=== PATIENT | female | born 1970 | race Caucasian/White ===

== ENCOUNTER 2017-01-20 11:39 | Observation (INO) | payer BC ==
[2017-01-20] MEDS ORDERED: SODIUM CHLORIDE 0.9% (FLUSH) 10 ML SYG IV PRN ×2 (11:41→19:45)
[2017-01-20] MEDS ORDERED: ASPIRIN TABLET 325 MG TAB PO ONE (11:41)
--- NOTE | 2017-01-20 11:54 | RAD ---
EXAM DESCRIPTION: Chest,1 View CLINICAL HISTORY: chest pain COMPARISON: 22 August 2009 TECHNIQUE: AP portable chest FINDINGS: The lungs are clear. There is no infiltrate or effusion. The heart is normal size. IMPRESSION: Normal portable chest Electronically signed by: Hossein Martinez MD 01/20/2017 11:53 AM TELEVISION SERVICE ENGINEER
[2017-01-20] MEDS ORDERED: NITROGLYCERIN 0.4 MG 25 EA TAB SL ONE ×2 (12:03→12:08)
[2017-01-20] MEDS ORDERED: MORPHINE SULFATE INJ 10 MG/ML VIAL IV ONE ×2 (12:28→14:33)
[2017-01-20] MEDS ORDERED: ONDANSETRON INJ 4 MG/2 ML VIAL IV ONE (12:29)
[2017-01-20] MEDS ORDERED: KETOROLAC TROMETHAMINE INJ 30 MG/ML VIAL IV ONE (12:29)
--- NOTE | 2017-01-20 13:57 | ED.PDOC ---
History of Present Illness - General Chief Complaint: Chest Pain/[place] Stated Complaint: chest pain Time Seen by Provider: 01/20/17 12:48 Source: patient Exam Limitations: no limitations - History of Present Illness Initial Comments: PT REPORTS FEW HOUR HISTORY OF CHEST PAIN AND EPIGASTRIC ABDOMINAL PAIN THAT BEGAN WHILE AT WORK. PT STATES THAT CHEST PAIN RADIATES TO HER JAW AND EARS AND THE ABDOMINAL PAIN RADIATES TO THE RIGHT FLANK. PT STATES THAT SHE THINKS SHE IS HAVING A GALLBLADDER ATTACK. PT DENIES FEVER, CHILLS, N/V/D. Timing/Duration: 1-3 hours Severity: severe Improving Factors: nothing Worsening Factors: nothing Associated Symptoms: chest pain Allergies/Adverse Reactions: Allergies Loratadine [From Claritin-D] Adverse Reaction (Verified 07/10/15 14:39) Pseudoephedrine [From Claritin-D] Adverse Reaction (Verified 07/10/15 14:39) Home Medications: Ambulatory Orders Ibuprofen [Motrin Tab] 600 mg PO Q8H PRN #15 tab 07/10/15 SILVER SULFADIAZINE 1 % 25gm [Silvadene Cream 25gm] 1 applic TOP BID #400 gm Tramadol HCl 50 mg PO Q4H PRN #30 unit 07/10/15 Albuterol Inhaler [Ventolin Hfa Inhaler] 1 puff INH Q4-6H PRN 07/14/15 Estradiol [Estrace] 1 mg PO DAILY 07/14/15 Ipratropium/Albuterol Inhaler [Combivent Respimat 20-100 Mcg/Act] 120 puff INH BID 07/14/15 Losartan Potassium [Cozaar] 50 mg PO DAILY 07/14/15 Cephalexin [Keflex] 1,000 mg PO BID #40 cap 07/16/15 Wound Dressings [Adaptic Non-Adhering Dres] 1 pad EX BID #24 pad 07/16/15 Review of Systems - Review of Systems Constitutional: Denies: chills, fever EENTM: States: ear pain. Denies: throat pain Respiratory: Denies: cough, short of breath Cardiology: States: see HPI, chest pain. Denies: palpitations, syncope Gastrointestinal/Abdominal: States: see HPI, abdominal pain. Denies: nausea, vomiting Musculoskeletal: States: see HPI, back pain. Denies: joint pain Skin: Denies: change in color, rash Neurological: States: no symptoms reported Endocrine: States: no symptoms reported Hematologic/Lymphatic: States: no symptoms reported Past Medical History (General) - Patient Medical History Hx Seizures: No Hx Stroke: No Hx Asthma: Yes Hx of COPD: No Hx Cardiac Disorders: Yes Hx Congestive Heart Failure: No Hx Pacemaker: No Hx Hypertension: Yes Hx Diabetes: Yes Hx MRSA: No Surgical History: appendectomy, Hysterectomy Other Surgeries:: HYSTERECTOMY, LAP BAND - Social History Hx Tobacco Use: No Hx Alcohol Use: Yes - OCCASIONAL Hx Substance Use: No Hx Depression: Yes Hx Physical Abuse: No Hx Emotional Abuse: No - Triage Comment ED Triage Comment: Pt states she started having chest pain that radiates to left side of jaw. States pain has gotten of worse Family Medical History - Family History Mother Family History: Unknown Physical Exam - Physical Exam General Appearance: Alert, Obvious distress, Well Developed, Well Groomed, Well Hydrated Eye Exam: bilateral normal Ears, Nose, Throat: hearing grossly normal, normal ENT inspection Neck: non-tender, full range of motion Respiratory: chest non-tender, lungs clear, normal breath sounds, no respiratory distress Cardiovascular/Chest: regular rate, rhythm, no murmur Gastrointestinal/Abdominal: normal bowel sounds, soft, tenderness - EPIGASTRIC AND RUQ Back Exam: normal inspection Extremity: normal range of motion, non-tender, normal inspection Neurologic: alert, normal mood/affect, oriented x 3 Skin Exam: normal color, warm/dry Progress - Progress Progress: 01/20/17 14:00 PT REPORTS NO RELIEF IN PAIN AFTER SL NTG, IV MORPHINE AND TORADOL ORDERED. PT REPORTS SIGNIFICANT PAIN RELIEF BUT NOW STATES THAT PAIN IS RETURNING. ADDITIONAL MORPHINE ORDERED ALONG WITH CT ABD/PEL 01/20/17 15:52 PT REPORTS RELIEF OF PAIN AFTER 2ND DOSE OF IV MORPHINE. LABS AND CT FINDINGS DISCUSSED WITH PT. SHE AGREES TO BE ADMITTED FOR FURTHER OBSERVATION AND WORKUP. - Results/Orders Results/Orders: Laboratory Tests 01/20/17 11:55 WBC 9.6 RBC 5.09 Hgb 15.2 Hct 44.2 MCV 86.9 MCH 29.8 MCHC 34.3 RDW 14.0 Plt Count 368 MPV 7.4 Absolute Neuts (auto) 5.80 Absolute Lymphs (auto) 2.80 Absolute Monos (auto) 0.80 Absolute Eos (auto) 0.10 Absolute Basos (auto) 0.10 Neutrophils % 60.3 Lymphocytes % 29.5 Monocytes % 8.3 Eosinophils % 0.7 L Basophils % 1.2 PT 10.5 INR 0.930 PTT (SP) 37.0 H Sodium 136 Potassium 4.0 Chloride 99 L Carbon Dioxide 30 Anion Gap 11.0 L BUN 13 Creatinine 0.71 BUN/Creatinine Ratio 18.3 Random Glucose 90 Serum Osmolality 271.6 L Calcium 9.4 Magnesium 2.0 Creatine Kinase 39 CK-MB (CK-2) 0.8 CK-MB (CK-2) % Not Reportable Troponin I < 0.02 B-Natriuretic Peptide 7.3 Urine Color Yellow Urine Appearance Clear Urine pH 5.0 Ur Specific Rulo <= 1.005 Urine Protein Negative Urine Glucose (UA) Negative Urine Ketones Negative Urine Blood Negative Urine Nitrite Negative Urine Bilirubin Negative Urine Urobilinogen 0.2 Ur Leukocyte Esterase Negative Urine RBC 0 Urine WBC 0-1 Ur Epithelial Cells 20-30 Urine Bacteria 0 - EKG/XRAY/CT EKG: Sinus - 70BPM, NL INTERVALS, NL AXIS, no ST T wave changes - NO OLD FOR COMPARISON Xray Comments: CXR-NEGATIVE PER RAD Departure - Departure Clinical Impression: Chest pain, Abdominal pain Time of Disposition: 15:53 Disposition: Admit Patient Condition: Good Departure Forms: ED Discharge - Pt. Copy, Patient Portal Self Enrollment Home Medications: Ambulatory Orders Ibuprofen [Motrin Tab] 600 mg PO Q8H PRN #15 tab 07/10/15 SILVER SULFADIAZINE 1 % 25gm [Silvadene Cream 25gm] 1 applic TOP BID #400 gm Tramadol HCl 50 mg PO Q4H PRN #30 unit 07/10/15 Albuterol Inhaler [Ventolin Hfa Inhaler] 1 puff INH Q4-6H PRN 07/14/15 Estradiol [Estrace] 1 mg PO DAILY 07/14/15 Ipratropium/Albuterol Inhaler [Combivent Respimat 20-100 Mcg/Act] 120 puff INH BID 07/14/15 Losartan Potassium [Cozaar] 50 mg PO DAILY 07/14/15 Cephalexin [Keflex] 1,000 mg PO BID #40 cap 07/16/15 Wound Dressings [Adaptic Non-Adhering Dres] 1 pad EX BID #24 pad 07/16/15 Decision To Admit - Decistion To Admit Decision to Admit Reason: Admit from ER Decision to Admit Date: 01/20/17 Decision to Admit Time: 15:53
--- NOTE | 2017-01-20 15:06 | CT ---
EXAM DESCRIPTION: Abdomen/Pelvis w/Contrast CLINICAL HISTORY: EPIGASTRIC AB PAIN, H/O GALLBLADDER DZ COMPARISON: None. TECHNIQUE: Postcontrast CT images of the abdomen and pelvis are obtained. CT scan done according to ALARA (As Low As Reasonably Achievable). FINDINGS: The visualized lung bases show no acute findings. Liver, spleen, pancreas, adrenal glands, gallbladder, and abdominal vasculature are unremarkable. No nephrolithiasis. No ureteral obstruction. Normal cortical enhancement of the kidneys. An adjustable gastric banding device is seen in place. Urinary bladder is contracted and not well evaluated. Uterus is not identified. The ovaries are not identified. The appendix is not seen. No small bowel obstruction. There is moderate increased volume of formed fecal material throughout the colon from cecum to rectum. Mild scattered diverticuli of the sigmoid colon are seen without associated inflammatory changes or fluid collections. No pathologically enlarged abdominal or retroperitoneal lymphadenopathy is seen. Osseous structures show no aggressive bony lesions. IMPRESSION: [id number] constipation or obstipation of the colon is seen. Gastric banding device is noted in place. No acute findings on CT of the abdomen and pelvis. Electronically signed by: Sebas Elise MD 01/20/2017 3:06 PM CHIEF EXECUTIVE OFFICER
[2017-01-20] MEDS ORDERED: SODIUM CHLORIDE 0.9% 10 ML VIAL ONE (15:14)
--- NOTE | 2017-01-20 16:19 | HP ---
HISTORY OF PRESENT ILLNESS: This 46-year-old, white female is admitted to the hospital via the Emergency Room because of significant chest and upper abdominal pain. 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 The chest pain was radiating to her jaw and her ear, but also was in her epigastrium as well as in the right upper quadrant and around to the right flank. Nitroglycerin had no effect. She was given Toradol and morphine which seemed to help the pain. CT scan of the abdomen revealed fecal stasis, but no other significant abnormalities. She has had gallbladder examination in the past with a DISIDA scan with 43% ejection back in 2006. This is borderline for definitive further investigation and may be repeated with Dr. Moreno assisting with that decision. The patient is placed in the hospital for overnight observation on a low fat diet and will be NPO after midnight. PAST MEDICAL HISTORY: 1. Diabetic tendencies for which she is on diet control. 2. Chronic constipation. 3. Intermittent belly pain with her pain being especially bad earlier today in the epigastric region and to the right upper quadrant. Chest pain also associated with her pain today. PAST SURGICAL HISTORY: 1. Hysterectomy. 2. Laparoscopic appendectomy. 3. Tubal ligation. 4. Lap band placement. 5. Surgery on fingers. CURRENT MEDICATIONS: Please refer to nursing notes for a list of up to date and verified home medications. ALLERGIES: LORATADINE WITH PSEUDOEPHEDRINE PRIMARILY CAUSING VENTRICULAR TACHYCARDIA. FAMILY HISTORY: Positive for coronary artery disease, cancer, CVAs and diabetes mellitus. SOCIAL HISTORY: She works as a nurse in [employer]. She stopped smoking 18 years ago. REVIEW OF SYSTEMS: GENERAL: Weight has been coming down after her lap band surgery. No fever or chills. HEENT: Hearing and vision appear to be good. LUNGS: No significant shortness of breath or hemoptysis. Occasional cough. CARDIOVASCULAR: Some chest discomfort as noted. No palpitations currently, but she has had some ventricular tachyarrhythmias in the past, especially after taking citalopram with ephedra or Claritin D. GASTROINTESTINAL: Some upper abdominal pain, more in the epigastric and right upper quadrant than the left. Decreased bowel activities with some constipation noted over the last few days. EXTREMITIES: Fairly well formed. NEUROLOGIC: No focal neurologic deficits. PHYSICAL EXAMINATION: VITAL SIGNS: Afebrile. Pulse 73. Blood pressure 121/62. Pulse oximetry 95% on room air. Weight approximately 100 kg. GENERAL: The patient is awake, alert, and communicative. She is well versed and a good historian. HEENT: Within normal limits. CHEST: Chest wall discomfort and tenderness on palpation is especially noted across the lower anterior rib cages, more on the right than the left. LUNGS: Fairly good breath sounds bilaterally and generally clear. CARDIOVASCULAR: Heart tones are regular without any significant gallops. ABDOMEN: Fairly significant epigastric and right upper quadrant discomfort up underneath the ribs on palpation. She does have a port on the left upper quadrant. No organomegaly or masses are noted. Bowel tones are present, though somewhat diminished. EXTREMITIES: Well-formed with no significant edema state. NEUROLOGIC: No focal neurological deficits are noted. The patient is awake, alert, oriented and communicative. LABORATORY: White count 9,600, hemoglobin 15.2, INR 0.93. Chemistries show potassium 4.0, BUN 13, creatinine 0.71, glucose 90, osmolality low at 271, magnesium 2, troponin 0. Beta natriuretic peptide 7.3. Lipase normal at 25. Urinalysis generally clean with some epithelial cells noted. Chest x-ray is performed and is within normal limits. Abdominopelvic CT scan is performed and fails to see any significant abnormalities. She did have a fairly significant amount of fecal stasis, fecal impaction present. ASSESSMENT: 1. Acute chest pain, rule out underlying ischemic coronary disease. The chest pain is atypical, but cardiac enzymes and serial EKGs will be performed. 2. Abdominal pain, epigastric, right upper quadrant, rule out possibility of gallbladder disease, which is similar to pain that she has had in years past. 3. Fairly significant fecal stasis with constipation. Will begin an attempt to gently remove this. 4. History of chronic diabetes mellitus on diet control. 5. Exogenous obesity, slowing improving after lap band surgery in 2009. PLAN: We will continue on a low fat diet, by NPO after midnight, get an ultrasound in the morning. Dr. Moreno will evaluate the patient tomorrow afternoon and will be able to make recommendations as to whether a repeat DISIDA scan would be helpful at this time, ten years after the last one. Continue the evaluation process and observe closely and support. #[id number] [facility]
[2017-01-20] MEDS: KETOROLAC TROMETHAMINE INJ 30 MG/ML VIAL IV PRN (18:16)
[2017-01-20] MEDS ORDERED: ACETAMINOPHEN 325 MG TAB PO PRN (19:45)
[2017-01-20] MEDS ORDERED: NITROGLYCERIN 0.4 MG 25 EA TAB SL PRN (19:45)
[2017-01-20] MEDS ORDERED: MORPHINE SULFATE INJ 10 MG/ML VIAL IV PRN (19:45)
[2017-01-20] MEDS ORDERED: ZOLPIDEM TARTRATE 5 MG TAB PO PRN (19:55)
[2017-01-20] MEDS ORDERED: MAGNESIUM HYDROXIDE 30 ML UD PO PRN (19:56)
[2017-01-20] MEDS ORDERED: BISACODYL SUPPOSITORY 10 MG PR PRN (19:57)
[2017-01-20] MEDS ORDERED: ONDANSETRON INJ 4 MG/2 ML VIAL IV PRN (19:59)
[2017-01-20] MEDS ORDERED: IV SET AND CAP CHANGE INJ INJ SCH (20:00)
[2017-01-20] MEDS: SODIUM CHLORIDE 0.9% (FLUSH) 10 ML SYG IV SCH (21:16)
[2017-01-20] MEDS: HYDROcodone 10MG/APAP 325MG 1 EA TAB PO PRN (21:22)
[2017-01-21] MEDS: KETOROLAC TROMETHAMINE INJ 30 MG/ML VIAL IV PRN ×3 (01:46→15:41)
[2017-01-21] MEDS: OMEPRAZOLE CAP 20 MG CAP PO SCH ×2 (06:17→10:35)
[2017-01-21] MEDS ORDERED: SODIUM CHLORIDE 0.9% 10 ML VIAL IV PRN (08:28)
[2017-01-21] MEDS ORDERED: FLUTICASONE/SALMETEROL 500/50 INH INH SCH (09:00)
[2017-01-21] MEDS ORDERED: LOSARTAN POTASSIUM 25 MG TAB PO SCH (09:00)
[2017-01-21] MEDS ORDERED: ASPIRIN (CHEWABLE) 81 MG TAB PO SCH (09:00)
--- NOTE | 2017-01-21 09:48 | US ---
EXAM DESCRIPTION: Gall Bladder CLINICAL HISTORY: RUQ abd pain COMPARISON: None Available. TECHNIQUE: Right upper quadrant ultrasound] FINDINGS: The liver has a normal appearance. There is no bile duct dilatation. The common bile duct measures 5.4 mm. The gallbladder is packed with stones Portions of the pancreas seen appear normal. The upper abdominal aorta and the inferior vena cava are unremarkable. Portions of the right kidney seen appear normal. IMPRESSION: Cholelithiasis Electronically signed by: Hossein Martinez MD 01/21/2017 9:47 AM PUBLIC FINANCE SPECIALIST
[2017-01-21] MEDS: SODIUM CHLORIDE 0.9% (FLUSH) 10 ML SYG IV SCH (10:35)
[2017-01-21] MEDS: HYDROcodone 10MG/APAP 325MG 1 EA TAB PO PRN (10:36)
[2017-01-21 11:29] VITALS: O2SAT 97
[2017-01-21 14:45] VITALS: BP 107/73; TEMP 98.4
--- NOTE | 2017-01-21 18:17 | DS ---
DISCHARGE DIAGNOSIS: 1. Acute abdominal pain especially in epigastrium and right upper quadrant. 2. Acute cholecystitis with associated cholelithiasis. 3. Presence of fecal stasis with chronic constipation. 4. History of chronic diabetes mellitus on diet control. 5. History of lap band surgery in 2009 with the patient on a weight reduction program. 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 She has had significant worsening epigastric and right upper quadrant pain very severe in nature. She was given analgesics in the Emergency Room which seemed to help the pain. CT scan of the abdomen revealed fecal stasis but no other abnormalities. She was scheduled for earlier today for a gallbladder ultrasound which revealed a gallbladder full of stones with associated cholecystitis. She has had a history of a borderline abnormal Disida scan at 43% ejection 10 years ago. The patient was placed on a no fat diet, given IV hydration and analgesics as needed. LABORATORY: White count remained normal down to 8,100 with 61% neutrophils, hemoglobin 13.3, INR of 0.93. Chemistries showed potassium 3.6, BUN 14, creatinine 0.69, glucose 87, serum osmolality 274. Liver enzymes otherwise normal as is lipase and proteins. Cardiac enzymes are within normal limits with troponin zero. Beta natriuretic peptide 7.3. No cultures. X-RAY: Chest x-ray showed no acute findings. Abdomen CT revealed moderate fecal stasis with no other findings. Gallbladder ultrasound revealed gallbladder full of stones. HOSPITAL COURSE: The patient was seen by Dr. Moreno in consultation in the afternoon and is tentatively scheduled for gallbladder surgery removal by laparoscopic technique in 2 days on . The patient was feeling much improved at the time she was discharged to go home. She is to convalesce at home and see Dr. Moreno in the morning in the clinic. PLAN: Discharge home to have close followup with Dr. Moreno in the morning in the surgical clinic. Diet is to be no fat. Drink plenty of fluids. See home medications to include Zofran for nausea. Avoid aspirin and Advil medications before surgery because of their effect on platelets. Return if not improving. #[id number] [facility]
== END 2017-01-21 18:00 | disposition home or self-care (01) ==
LOC: ER 11:39 → MS 16:18
PROVIDERS: ADMIT Emergency Medicine; ATTEND Emergency Medicine
DX: K80.00 Calculus of gallbladder with acute cholecystitis without obstruction (principal); R10.13 Epigastric pain; R07.89 Other chest pain; E11.9 Type 2 diabetes mellitus without complications; K59.09 Other constipation; J45.909 Unspecified asthma, uncomplicated; I10 Essential (primary) hypertension; E66.09 Other obesity due to excess calories; Z68.37 Body mass index [BMI] 37.0-37.9, adult; Z98.84 Bariatric surgery status; Z79.51 Long term (current) use of inhaled steroids; Z79.899 Other long term (current) drug therapy; Z88.8 Allergy status to other drugs, medicaments and biological substances; Z87.891 Personal history of nicotine dependence; Z90.49 Acquired absence of other specified parts of digestive tract; Z90.710 Acquired absence of both cervix and uterus; Z82.49 Family history of ischemic heart disease and other diseases of the circulatory system; Z82.3 Family history of stroke; Z83.3 Family history of diabetes mellitus; Z80.9 Family history of malignant neoplasm, unspecified
CPT/HCPCS: 36415 ×2; 71010; 74177; 76705; 80048; 80053; 80061; 81001; 82550 ×3; 82553 ×3; 83690 ×2; 83880; 84484 ×3; 85025 ×2; 85610; 85730; 93005; 94760; 96374; 96375; 96376 ×3; 99284; G0378; J1885 ×5; J2270 ×2; J2405 ×2

== ENCOUNTER 2017-01-24 06:02 | Day surgery (SDC) | payer BC ==
[2017-01-24] MEDS ORDERED: LACTATED RINGERS 1,000 ML ONE ×2 (07:04→16:27)
[2017-01-24] MEDS ORDERED: SODIUM CHL 0.9% 100ML MINI-BAG 100 ML IVPB ONE (07:04)
[2017-01-24] MEDS ORDERED: ceFAZolin SODIUM 1 GM VIAL ONE (07:05)
[2017-01-24] MEDS ORDERED: raNITIdine HCL INJ 25 MG/ML VIAL IV ONE (12:00)
[2017-01-24] MEDS ORDERED: NEOSTIGMINE METHYLSULFATE 1 MG/ML ML IV ONE (12:00)
[2017-01-24] MEDS ORDERED: LIDOCAINE 1% 10 ML VIAL INJ ONE (12:00)
[2017-01-24] MEDS ORDERED: GLYCOPYRROLATE 0.2 MG/ML VIAL IV ONE (12:00)
[2017-01-24] MEDS ORDERED: PROPOFOL 200 MG/20 ML VIAL IV ONE (12:00)
[2017-01-24] MEDS ORDERED: DEXAMETHASONE INJ 10 MG/ML VIAL IV ONE (12:00)
[2017-01-24] MEDS ORDERED: METOCLOPRAMIDE HCL INJ 10 MG/2 ML VIAL IV ONE (12:00)
[2017-01-24] MEDS ORDERED: SODIUM CHLORIDE 0.9% 50 ML VIAL INJ ONE (12:00)
[2017-01-24] MEDS ORDERED: HEPARIN SODIUM (PORCINE) 10,000 UNITS/ML VIAL ONE (13:30)
[2017-01-24] MEDS ORDERED: BUPIVACAINE 0.25% W/EPI 50 ML VIAL INJ ONE (13:30)
[2017-01-24] MEDS ORDERED: ROCURONIUM BROMIDE 10 MG/ML VIAL ONE (13:37)
[2017-01-24] MEDS ORDERED: MIDAZOLAM INJ 5 MG/5 ML VIAL ONE (13:37)
[2017-01-24] MEDS ORDERED: fentaNYL CITRATE INJ 50 MCG/ML AMP ONE (13:37)
[2017-01-24] MEDS ORDERED: HYDROmorphone HCL INJ 2 MG/ML VIAL ONE ×2 (14:43→16:20)
[2017-01-24] MEDS ORDERED: HYDROmorphone HCL INJ 2 MG/ML VIAL IV ONE ×5 (16:25→17:20)
--- NOTE | 2017-01-24 16:36 | OP ---
DATE OF PROCEDURE: 01/24/17 PREOPERATIVE DIAGNOSIS: 1. Symptomatic cholelithiasis. POSTOPERATIVE DIAGNOSIS: 1. Symptomatic cholelithiasis. 2. Chronic cholecystitis. SURGICAL PROCEDURE: 1. Laparoscopic cholecystectomy with intraoperative cholangiography. SURGEON: Eulogio Moreno M.D. SPINNER CAP FRAME: None. ANESTHESIA: Local infiltration of 0.25% Marcaine with epinephrine and general endotracheal anesthesia. INDICATION FOR SURGERY: The patient is a 46 year-old female who has had right upper quadrant pain with radiation to the back associated with fatty foods. She has had flatus, nausea and vomiting associated with it also. She had a sonographically diagnosed cholelithiasis. She was brought to the Surgical Suite today for cholecystectomy after the risks, benefits, and alternatives of the procedure were discussed and accepted. FINDINGS AT TIME OF PROCEDURE: The patient had multiple stones within the gallbladder. The gallbladder wall was mildly distended and thickened. There was no other acute pathology identified. There were adhesions in the pelvis and her lap band tubing was identified in the left upper quadrant, and seemed to be within normal limits. DESCRIPTION OF PROCEDURE: After adequate general endotracheal anesthesia was obtained, the patient was prepped and draped in the usual sterile manner. A surgical time out was taken. The infraumbilical area was infiltrated with local anesthesia. Curvilinear incision was fashioned and carried down through the subcutaneous tissue to the midline fascia. Traction sutures were placed on either side of the midline. A small incision was made in the midline fascia and the peritoneum was opened bluntly. Oriana trocar was introduced under direct vision into the abdominal cavity and fixed in place with the traction sutures. CO2 was then insufflated until a pressure of 12 mmHg was reached and the abdomen was tympanitic in all four quadrants. When this was done, the laparoscope was introduced. The abdomen was inspected with the previously noted findings. When this was done, the gallbladder was grasped, retracted anteriorly and laterally. The neck of the gallbladder was retracted laterally. The triangle of Calot was then explored with the cystic duct and cystic artery identified and isolated. The cystic duct was hemoclipped once proximally. The cystic artery was hemoclipped twice proximally and once distally. A small incision was made in the cystic duct. The cholangiogram catheter was introduced through a separate stab wound in the right upper quadrant, introduced into the cystic duct and with some difficulty eventually clipped in place. At this point, cholangiograms were taken which revealed free flow into the duodenum with no filling defects or strictures noted. When this was done, the cystic duct catheter was removed. The cystic duct was hemoclipped three times distally and divided between the hemoclips. The cystic artery was divided. The gallbladder was then dissected free from the gallbladder bed of the liver with some difficulty. A small rent made and several stones came out of the gallbladder when the gallbladder was removed the gallbladder bed of the liver. It was placed in an EndoCatch bag along with 3 stones that were identified. Three further stones were removed through the infraumbilical port using the Raj grasper. When the things were put in the gallbladder and the bag was tightened and tied, the gallbladder and bag were removed from the infraumbilical port site in the usual manner under direct vision. When this was done, the subhepatic space and mathieu hepatis were inspected and irrigated copiously. No bile leak or bleeding was identified. The subphrenic space was subsequently irrigated copiously with saline. The effluent was noted to be clear. Hemostasis was noted to be adequate. The upper abdominal ports were removed under direct vision. Hemostasis was noted there. The CO2, the laparoscope and the infraumbilical port were removed. The infraumbilical port site fascia was approximated with a single [id number] suture of 0 Vicryl. Subcutaneous tissue was irrigated copiously with saline. Skin edges were approximated with 4-0 Vicryl subcuticular sutures, benzoin and Steri-Strips. Sterile dressings were applied. The patient was awakened and taken to the Recovery Room in good and stable condition. Estimated blood loss was approximately 50 mL. All sponge, needle and instrument counts were correct. #[id number] [facility]
[2017-01-24 18:51] VITALS: O2SAT 95
[2017-01-24 18:52] VITALS: BP 135/85; TEMP 98.3
== END 2017-01-24 17:45 | disposition home or self-care (01) ==
LOC: AMB 06:02
PROVIDERS: ATTEND Surgery
DX: K80.10 Calculus of gallbladder with chronic cholecystitis without obstruction (principal); E11.9 Type 2 diabetes mellitus without complications; J45.909 Unspecified asthma, uncomplicated; I48.91 Unspecified atrial fibrillation; I10 Essential (primary) hypertension; K21.9 Gastro-esophageal reflux disease without esophagitis; E66.9 Obesity, unspecified; Z87.891 Personal history of nicotine dependence; Z88.8 Allergy status to other drugs, medicaments and biological substances; Z79.899 Other long term (current) drug therapy

== ENCOUNTER 2017-09-14 14:27 | Emergency (ER) | payer BC ==
[2017-09-14 14:41] VITALS: TEMP 97.9
[2017-09-14] MEDS ORDERED: ASPIRIN (CHEWABLE) 81 MG TAB PO ONE (14:48)
[2017-09-14] MEDS ORDERED: NITROGLYCERIN 0.4 MG 25 EA TAB SL ONE ×2 (14:48→15:10)
--- NOTE | 2017-09-14 14:59 | ED.PDOC ---
History of Present Illness - General Chief Complaint: Chest Pain/SC Stated Complaint: Chest pain Time Seen by Provider: 09/14/17 14:28 Source: patient, RN notes reviewed, Vital Signs reviewed Exam Limitations: no limitations - History of Present Illness Initial Comments: Patient comes to the ER with c/o chest pain. She reports she had a brief twinge on pain yesterday afternoon. Then the pain woke her up @ 01:30 this morning. The pain was substernal but no nausea, SOB or diaphoresis. The pain did radiate to the right and up to her R jaw. The pain lasted about 2 hours and as it eased that is when she had some diaphoresis. The pain did not completely go away but became severe again this afternoon. Currently the pain is in her L chest, still with no associated symptoms. Initially the pain was similar to when she had cholecystitis earlier in the year but her gallbladder was removed earlier this year. Timing/Duration: 7-24 hours Severity/Quality: moderate, sharp Location: substernal - & L chest Chest Pain Radiation: jaw Activities at Onset: sleep Prior Chest Pain/Cardiac Workup: non-cardiac Improving Factors: nothing Worsening Factors: nothing Nitro Today/Relief: 0.4 mg x 1, provided by ED Aspirin Treatment Today: 81 mg x 4, provided by ED Associated Symptoms: denies symptoms Allergies/Adverse Reactions: Allergies Loratadine [From Claritin-D] Adverse Reaction (Verified 07/10/15 14:39) Pseudoephedrine [From Claritin-D] Adverse Reaction (Verified 07/10/15 14:39) Home Medications: Ambulatory Orders Losartan Potassium [Cozaar] 50 mg PO QAM 07/14/15 Cyanocobalamin [B12] 1,000 mcg PO BID 01/20/17 HYDROcodone 10MG/APAP 325MG [[place] 10/325] 1 tab PO PRN PRN 01/20/17 Ipratropium/Albuterol Inhaler [Combivent Respimat 20-100 Mcg/Act] 120 puff INH BID PRN 01/20/17 Zolpidem Tartrate [Ambien Cr] 12.5 mg PO BEDTIME 01/20/17 Cholecalciferol [Vitamin D3] 1,000 unit PO DAILY 01/22/17 Combivir 150-300 mg 1 ea PO BID 01/22/17 Dexlansoprazole [Dexilant] 60 mg PO DAILY PRN 01/24/17 Fluticasone/Salmeterol 500/50 [Advair Diskus] 1 puff INH DAILY 01/24/17 Review of Systems - Review of Systems Constitutional: States: diaphoresis. Denies: malaise EENTM: States: no symptoms reported Respiratory: States: no symptoms reported. Denies: short of breath Cardiology: States: see HPI, chest pain Gastrointestinal/Abdominal: States: no symptoms reported. Denies: nausea Musculoskeletal: States: no symptoms reported Skin: States: no symptoms reported Neurological: States: no symptoms reported All other Systems: No Change from Baseline Past Medical History (General) - Patient Medical History Hx Seizures: No Hx Stroke: No Hx Asthma: Yes Hx of COPD: No Hx Cardiac Disorders: Yes - Irregular heart beat Hx Congestive Heart Failure: No Hx Pacemaker: No Hx Hypertension: Yes Hx Diabetes: Yes - NIDDM Hx MRSA: No Surgical History: appendectomy, cholecystectomy, Hysterectomy - Vaccination History Hx Influenza Vaccination: Yes - 2016 Hx Pneumococcal Vaccination: No - Social History Hx Tobacco Use: Yes - Quit 1997 Hx Alcohol Use: No Hx Substance Use: No Hx Depression: Yes Hx Physical Abuse: No Hx Emotional Abuse: No - Female History Patient is a Female of Child Bearing Age (10 -59 yrs old): No Family Medical History - Family History Mother Family History: No Known Living Status: Still Living Physical Exam - Physical Exam General Appearance: Alert, Comfortable, No apparent distress, Well Developed, Well Groomed, Well Hydrated, Well Nourished Neck: supple, normal inspection Respiratory: chest non-tender, lungs clear, normal breath sounds, no respiratory distress, no accessory muscle use Cardiovascular/Chest: normal peripheral pulses, regular rate, rhythm, no edema, no gallop, no JVD, no murmur Peripheral Pulses: radial,right: 2+, radial,left: 2+ Gastrointestinal/Abdominal: normal bowel sounds, non tender, soft, no organomegaly, no pulsatile mass Extremity: normal range of motion, normal inspection Neurologic: alert, normal mood/affect, oriented x 3 Skin Exam: normal color, warm/dry Comments: Vital Signs 09/14/17 14:30 Temperature 97.9 F Pulse Rate [ 74 Left Radial] Respiratory 18 Rate Blood Pressure 124/55 [Left Arm] O2 Sat by Pulse 96 Oximetry Progress - Progress Progress: 09/14/17 15:11 CP improved from 4/10 to 1/10 after 1 SLNTG. Will give a second dose to see if pain goes away completely. 09/14/17 18:18 2nd SLNTG help due to BP. Patient has been comfortable with stable vitals throughout visit. 2 sets of cardiac enzymes are normal. Will d/c home and follow up with PCP - Results/Orders Results/Orders: Laboratory Tests 09/14/17 09/14/17 09/14/17 15:04 15:04 17:50 WBC 12.6 H RBC 4.84 Hgb 14.4 Hct 42.3 MCV 87.3 MCH 29.7 MCHC 34.0 RDW 12.8 Plt Count 385 MPV 7.9 Absolute Neuts (auto) 7.50 H Absolute Lymphs (auto) 3.90 H Absolute Monos (auto) 1.00 H Absolute Eos (auto) 0.10 Absolute Basos (auto) 0.10 Neutrophils % 59.4 Lymphocytes % 30.9 Monocytes % 8.3 Eosinophils % 0.5 L Basophils % 0.9 Sodium 135 Potassium 3.0 L Chloride 98 L Carbon Dioxide 28 Anion Gap 12.0 BUN 16 Creatinine 0.89 BUN/Creatinine Ratio 18.0 Random Glucose 90 Serum Osmolality 270.8 L Calcium 9.1 Total Bilirubin 0.4 AST 24 ALT 24 Alkaline Phosphatase 94 Creatine Kinase 20 L 20 L CK-MB (CK-2) 0.6 0.7 CK-MB (CK-2) % Not Reportable Not Reportable Troponin I < 0.02 < 0.02 Serum Total Protein 7.7 Albumin 4.4 Globulin 3.3 Albumin/Globulin Ratio 1.3 Amylase 44 Lipase 28 - EKG/XRAY/CT EKG: Sinus, no ST T wave changes, Unchanged from - 01/20/17 Comments: Rate 70BPM XRAY: chest - Normal per Rad Departure - Departure Clinical Impression: Chest pain Qualifiers: Chest pain type: unspecified Qualified Code(s): R07.9 - Chest pain, unspecified Time of Disposition: 18:19 Disposition: Discharge to Home or Self Care Condition: Good Departure Forms: ED Discharge - Pt. Copy, Patient Portal Self Enrollment Instructions: DI for Chest Pain Diet: resume usual diet Activity: increase activity as tolerated Referrals: Dre Waters MD [Primary Care Provider] - 1-5 Days Home Medications: Ambulatory Orders Losartan Potassium [Cozaar] 50 mg PO QAM 07/14/15 Cyanocobalamin [B12] 1,000 mcg PO BID 01/20/17 HYDROcodone 10MG/APAP 325MG [[place] 10325] 1 tab PO PRN PRN 01/20/17 Ipratropium/Albuterol Inhaler [Combivent Respimat 20-100 Mcg/Act] 120 puff INH BID PRN 01/20/17 Zolpidem Tartrate [Ambien Cr] 12.5 mg PO BEDTIME 01/20/17 Cholecalciferol [Vitamin D3] 1,000 unit PO DAILY 01/22/17 Combivir 150-300 mg 1 ea PO BID 01/22/17 Dexlansoprazole [Dexilant] 60 mg PO DAILY PRN 01/24/17 Fluticasone/Salmeterol 500/50 [Advair Diskus] 1 puff INH DAILY 01/24/17
--- NOTE | 2017-09-14 15:10 | RAD ---
PROCEDURE: XR CHEST 1 VIEW HISTORY: Chest pain COMPARISON: 01/20/2017 TECHNIQUE: Single projection of the chest was done. FINDINGS: The lung cummings are well inflated . There are no discrete airspace infiltrates, pneumothoraces or pleural effusions. The pulmonary vascularity is normal. The cardiomediastinal silhouette is unremarkable for patient's age and sex. IMPRESSION: There is no acute pleural-parenchymal process seen in the imaged lung cummings. Location of Interpretation: [facility] Electronically signed by: Jack Lora MD 09/14/2017 3:08 PM CDT Workstation: [id number]
[2017-09-14] MEDS ORDERED: KCL 40 MEQ/WATER FOR INJECTION 40 MEQ in PREMIX BAG 1 BAG IVPB ONE (15:28)
[2017-09-14] MEDS ORDERED: KCL 40 MEQ/WATER FOR INJECTION 100 ML IVPB ONE (15:57)
[2017-09-14] MEDS ORDERED: POTASSIUM CHLORIDE 20 MEQ TAB PO ONE (16:34)
[2017-09-14 18:26] VITALS: BP 105/70; O2SAT 96
== END 2017-09-14 18:20 | disposition home or self-care (01) ==
LOC: ER 14:27
DX: R07.9 Chest pain, unspecified (principal); Z87.891 Personal history of nicotine dependence; Z79.899 Other long term (current) drug therapy; I10 Essential (primary) hypertension; E11.9 Type 2 diabetes mellitus without complications; I49.9 Cardiac arrhythmia, unspecified; Z88.8 Allergy status to other drugs, medicaments and biological substances
CPT/HCPCS: 36415; 71010; 80053; 82150; 82550; 82553; 83690; 84484; 85025; 93005; J3480

== ENCOUNTER 2019-04-20 19:56 | Observation (INO) | payer BC ==
--- NOTE | 2019-04-20 20:41 | RAD ---
EXAM: Chest,1 View CLINICAL INDICATION: Tachycardia COMPARISON: 09/14/2017 FINDINGS: A single view of the chest was obtained. The heart size is normal. The pulmonary vascularity is unremarkable. The lungs are clear. There is no consolidation, infiltrate, pleural effusion, or pneumothorax. IMPRESSION: Normal chest radiograph. Electronically signed by: Cesar Beltran MD 04/20/2019 8:39 PM CDT
--- NOTE | 2019-04-20 20:51 | ED.PDOC ---
History of Present Illness - General Chief Complaint: Cardiovascular Problem Stated Complaint: rapid heart rate Time Seen by Provider: 04/20/19 20:10 Source: patient Exam Limitations: no limitations - History of Present Illness Initial Comments: PALPITATIONS AND MILD CP AND SOB. STARTED PHYSICIAN SUPPORT COORDINATOR. PULSE WAS 150 BPM SO CAME TO ER. IN ER, IMPROVED SPONTANEOUSLY TO 102, THEN 122, CURRENTLY 88. PT STATES SHE FEELS BACK TO NL. H/O PAROXYSMAL SVT EPISODES, USUALLY LASTING 5-10 MIN. THIS TIME LASTED LONGER PLUS WITH CP AND SOB WHICH AREN'T TYPICAL, THUS CONCERNED AND CAME TO ER. SHE TAKES DAILY ASA. H/O HTN. SEEN DR. APARICIO, CARDS; HAD NEG CARDS W/U. Timing/Duration: 1 hour Severity: moderate Location: substernal Activities at Onset: none Improving Factors: nothing Worsening Factors: nothing Aspirin Treatment Today: provided at home Associated Symptoms: denies symptoms Allergies/Adverse Reactions: Allergies Loratadine [From Claritin-D] Adverse Reaction (Verified 07/10/15 14:39) Pseudoephedrine [From Claritin-D] Adverse Reaction (Verified 07/10/15 14:39) Home Medications: Ambulatory Orders Losartan Potassium [Cozaar] 50 mg PO QAM 07/14/15 Cyanocobalamin [B12] 1,000 mcg PO BID 01/20/17 HYDROcodone 10MG/APAP 325MG [[place] 10/325] 1 tab PO PRN PRN 01/20/17 Ipratropium/Albuterol Inhaler [Combivent Respimat 20-100 Mcg/Act] 120 puff INH BID PRN 01/20/17 Zolpidem Tartrate [Ambien Cr] 12.5 mg PO BEDTIME 01/20/17 Cholecalciferol [Vitamin D3] 1,000 unit PO DAILY 01/22/17 Combivir 150-300 mg 1 ea PO BID 01/22/17 Dexlansoprazole [Dexilant] 60 mg PO DAILY PRN 01/24/17 Fluticasone/Salmeterol 500/50 [Advair Diskus] 1 puff INH DAILY 01/24/17 Cyclobenzaprine HCl [Flexeril] 10 mg PO DAILY 04/20/19 Hydrochlorothiazide 12.5 mg PO DAILY 04/20/19 Meclizine HCl 12.5 mg PO DAILY 06/04/19 Review of Systems - Review of Systems Constitutional: States: no symptoms reported EENTM: States: no symptoms reported Respiratory: States: no symptoms reported. Denies: cough, short of breath Cardiology: Denies: chest pain, palpitations Gastrointestinal/Abdominal: States: no symptoms reported Genitourinary: States: no symptoms reported Musculoskeletal: States: no symptoms reported Skin: States: no symptoms reported Neurological: States: no symptoms reported Endocrine: States: no symptoms reported Hematologic/Lymphatic: States: no symptoms reported All other Systems: Reviewed and Negative Past Medical History (General) - Patient Medical History Hx Seizures: No Hx Stroke: No Hx Asthma: Yes Hx of COPD: No Hx Cardiac Disorders: Yes - Irregular heart beat Hx Congestive Heart Failure: No Hx Pacemaker: No Hx Hypertension: Yes Hx Diabetes: Yes Hx MRSA: No - Vaccination History Hx Influenza Vaccination: Yes - 2016 Hx Pneumococcal Vaccination: No - Social History Hx Tobacco Use: Yes - Quit 1997 Hx Alcohol Use: No Hx Substance Use: No Hx Depression: Yes Hx Physical Abuse: No Hx Emotional Abuse: No Family Medical History - Family History Mother Family History: No Known Living Status: Still Living Physical Exam - Physical Exam General Appearance: Alert, No apparent distress Eyes, Ears, Nose, Throat Exam: PERRL/EOMI, normal ENT inspection Neck: non-tender, full range of motion Respiratory: chest non-tender, lungs clear, normal breath sounds, no respiratory distress, no accessory muscle use Cardiovascular/Chest: normal peripheral pulses, regular rate, rhythm, no edema, no gallop, no JVD, no murmur Peripheral Pulses: radial,right: 2+, radial,left: 2+ Gastrointestinal/Abdominal: normal bowel sounds, non tender, soft Extremity: normal range of motion, non-tender, pedal edema - PT STATES IS CHRONIC, UNCHANGED FROM BASELINE. Neurologic: no motor/sensory deficits, normal mood/affect Skin Exam: normal color, warm/dry Lymphatic: no adenopathy Progress - Progress Progress: 04/20/19 23:30 CP W/U NEG SO FAR: CBC, CMP, CXR, CARDIAC ENZ X 1ST TWO SETS. EKG = SINUS TACHY (RATE 108) W/ PVC X 1. PT STATES HER PALPATATIONS, SOB, CP RESOLVED COMPLETELY, SPONTANEOUSLY. SINCE THE CP AND SOB ARE NEW SX FOR HER, SHE IS BEING ADMITTED OBS FOR CP R/O. THANK YOU, [facility] AND [facility], FOR ACCEPTING FURTHER CARE OF OUR PT. 04/20/19 23:34 - EKG/XRAY/CT EKG: Sinus, Tachy, no ST T wave changes Departure - Departure Clinical Impression: Paroxysmal SVT (supraventricular tachycardia), PVC (premature ventricular contraction) Chest pain Qualifiers: Chest pain type: precordial pain Qualified Code(s): R07.2 - Precordial pain Dyspnea Qualifiers: Dyspnea type: shortness of breath Qualified Code(s): R06.02 - Shortness of breath; R06.00 - Dyspnea, unspecified; R06.01 - Orthopnea Disposition: Admit Patient Condition: Good Home Medications: Ambulatory Orders Losartan Potassium [Cozaar] 50 mg PO QAM 07/14/15 Cyanocobalamin [B12] 1,000 mcg PO BID 01/20/17 HYDROcodone 10MG/APAP 325MG [[place] 10/325] 1 tab PO PRN PRN 01/20/17 Ipratropium/Albuterol Inhaler [Combivent Respimat 20-100 Mcg/Act] 120 puff INH BID PRN 01/20/17 Zolpidem Tartrate [Ambien Cr] 12.5 mg PO BEDTIME 01/20/17 Cholecalciferol [Vitamin D3] 1,000 unit PO DAILY 01/22/17 Combivir 150-300 mg 1 ea PO BID 01/22/17 Dexlansoprazole [Dexilant] 60 mg PO DAILY PRN 01/24/17 Fluticasone/Salmeterol 500/50 [Advair Diskus] 1 puff INH DAILY 01/24/17 Cyclobenzaprine HCl [Flexeril] 10 mg PO DAILY 04/20/19 Hydrochlorothiazide 12.5 mg PO DAILY 04/20/19 Meclizine HCl 12.5 mg PO DAILY 04/20/19 Decision To Admit - Decistion To Admit Decision to Admit Reason: Admit from ER Decision to Admit Date: 04/20/19 Decision to Admit Time: 23:04
[2019-04-21] MEDS ORDERED: ASPIRIN (CHEWABLE) 81 MG TAB PO ONE (00:25)
[2019-04-21] MEDS ORDERED: NITROGLYCERIN 0.4 MG 25 EA TAB SL PRN (00:25)
[2019-04-21] MEDS ORDERED: ACETAMINOPHEN 325 MG TAB PO PRN (00:25)
[2019-04-21] MEDS ORDERED: MORPHINE SULFATE INJ 10 MG/ML VIAL IV PRN (00:25)
[2019-04-21] MEDS ORDERED: SODIUM CHLORIDE 0.9% (FLUSH) 10 ML SYG IV PRN (00:25)
[2019-04-21] MEDS ORDERED: IV SET AND CAP CHANGE INJ INJ SCH (00:30)
[2019-04-21] MEDS ORDERED: DEXTROSE 50% 25 GM/50 ML SYG IV PRN (00:34)
[2019-04-21] MEDS ORDERED: GLUCAGON INJ 1 MG VIAL SUBCU PRN (00:34)
[2019-04-21] MEDS ORDERED: ALUM & MAG HYDROX-SIMETHICONE 30 ML, LIDOCAINE VISCOUS 2% 15 ML PO ONE ×2 (00:38)
[2019-04-21] MEDS ORDERED: LIDOCAINE HCL 2% (MOUTH-THROAT) 15 ML UD ONE (00:41)
[2019-04-21] MEDS ORDERED: ALUMINUM & MAGNESIUM HYDROXIDE 30 ML UD ONE (00:42)
[2019-04-21] MEDS ORDERED: ALUM & MAG HYDROX-SIMETHICONE 30 ML UD ONE (00:46)
[2019-04-21] MEDS ORDERED: ENOXAPARIN SODIUM 100 MG/ML SYG SUBCU ONE (02:59)
[2019-04-21] MEDS ORDERED: INSULIN LISPRO 100 UNITS/ML PEN SUBCU SCH (07:00)
[2019-04-21] MEDS ORDERED: SODIUM CHLORIDE 0.9% (FLUSH) 10 ML SYG IV SCH (09:00)
[2019-04-21] MEDS ORDERED: KETOROLAC TROMETHAMINE INJ 30 MG/ML VIAL IV ONE (09:18)
[2019-04-21 10:22] VITALS: BP 126/83; TEMP 98; O2SAT 97
[2019-04-21] MEDS ORDERED: NEBIVOLOL 2.5 MG TAB PO SCH (10:30)
[2019-04-21] MEDS ORDERED: ENOXAPARIN SODIUM 60 MG/0.6 ML SYG SUBCU SCH (10:30)
--- NOTE | 2019-04-21 13:34 | SSS ---
SUPERVISING PHYSICIAN: Chilo Garcia MD DATE OF ADMISSION: 04/20/19 DATE OF DISCHARGE: 04/21/19 ADMISSION DIAGNOSIS: 1. Chest pain. 2. Palpitations. DISCHARGE DIAGNOSIS: 1. Chest pain without any acute findings on EKG with negative cardiac enzymes, resolved with nonsteroidal anti-inflammatories, uncertain etiology, but likely costochondritic. 2. Paroxysmal supraventricular tachycardia, uncertain etiology, resolved prior to admission and no new episodes prior to discharge. 3. Orthopnea secondary to #2. 4. Hypertension, controlled. 5. Diabetes mellitus, diet controlled. 6. Chronic constipation. 7. Gastroesophageal reflux disease, possibly contributing to #1, with the patient on Dexilant. HISTORY OF PRESENT ILLNESS: Ms. 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 During the day on 04/20/19, she started having some palpitations, at which time she went to see Dr. Oliver and they noted on EKG she was having heart rate into the 150s. Dr. Oliver sent the patient to the Emergency Room for evaluation. Prior to being admitted to the Emergency Department, she was having some chest discomfort associated with palpitations along with some shortness of breath. However, in the Emergency Room, her symptoms spontaneously resolved and she returned to normal levels with regards to her heart rate and was no longer having any chest pains. She does have a history of paroxysmal supraventricular tachycardia episodes with some episodes lasting up to 10 minutes. The episode that occurred in the clinic persisted and was atypical in its presentation compared to previous episodes. She notes she has been seen by Dr. Ball, cell preparer, who has done a nuclear perfusion scan with no acute findings. Her EKG in the Emergency Room showed sinus tachycardia at [address] or T-wave changes indicating acute injury pattern or ischemia. Her lab work showed her troponins were initially within normal limits. Repeat second troponin was also within normal limits. The patient was at that time no longer having any symptoms. She did note she was having a little bit of what she considered nagging pain, but could not put a number to it. She also reports she has an 8-month-old grandson that she has been carrying around and taking care of in the recent weeks, which possibly could be contributing to the chest wall discomfort. She is also currently enrolled in school, working and feels like maybe stress levels are high enough that she had a mild panic attack resulting in the heart rate. Her vital signs were showing stable blood pressures. On admission, blood pressure actually was 142/78 with a heart rate of 112. She was afebrile and saturation was 94% on room air. Chest x-ray per radiologic interpretation showed normal chest radiograph. Given the patient's past history of paroxysmal supraventricular tachycardia, even though her initial cardiac workup was negative on EKG and laboratory studies, Dr. Thompson, Emergency Room physician, requested the patient be placed in observation overnight to further monitor cardiac telemetry and ensure that her pain did not return and that she did not have any other palpitations related to supraventricular tachycardia requiring medical intervention. Ms. Watts was placed in observation in stable condition. PAST MEDICAL HISTORY: 1. Paroxysmal supraventricular tachycardia. 2. Hypertension. 3. Diabetes mellitus, type 2, controlled with diet and weight loss. 4. Gastroesophageal reflux disease. PAST SURGICAL HISTORY: 1. Hysterectomy. 2. Laparoscopic appendectomy. 3. Tubal ligation. 4. Lap band placement. 5. Several surgeries on her fingers. 6. Cholecystectomy. CURRENT MEDICATIONS: 1. Meloxicam 7.5 mg at bedtime. 2. Vitamin D 1000 units daily. 3. Vitamin B12 1000 mcg daily. 4. Cozaar 100 mg daily. 5. Flexeril 10 mg at bedtime. 6. Hydrochlorothiazide 12.5 mg daily. 7. Ambien 12.5 mg at bedtime. 8. Combivent Respimat 20-100 mcg per actuator, 1 puff inhaled b.i.d. 9. [place] 10/325 1 tablet q.4h. as needed. 10. Enteric coated aspirin 81 mg daily. ALLERGIES: LORATADINE AND PSEUDOEPHEDRINE. FAMILY HISTORY: Positive for coronary artery disease, cancers, strokes and diabetes mellitus. 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 She had a previous history of smoking, but stopped 20 years previously. She drinks on rare occasions. She does not use any illicit drugs. REVIEW OF SYSTEMS: CONSTITUTIONAL: Negative for any fevers, chills, general malaise or unexplained weight loss. HEENT: Negative for hearing changes, sore throats, nasal congestion. RESPIRATORY: Negative for hemoptysis, coughing, wheezing. Positive shortness of breath associated with palpitations. CARDIOVASCULAR: Positive for chest pain as noted in history of present illness with palpitations with some associated shortness of breath. GASTROINTESTINAL: Negative for nausea, vomiting, diarrhea, constipation or abdominal pain. NEUROLOGIC: Negative for seizures, ataxia, vision changes, syncopal episodes or other focal neurologic deficits. PHYSICAL EXAMINATION: VITAL SIGNS: Initially in the Emergency Room, temperature 98.8. Pulse 112. Blood pressure 142/78. Respirations 20. Saturation 94% on room air. Prior to discharge, temperature was 98. Pulse 84. Blood pressure 126/83. Respiratory rate 16. Saturation 97% on room air. GENERAL: The patient is resting comfortably, appeared to be in no acute distress. HEENT: Tympanic membranes clear bilaterally. Oropharynx is pink, moist without any lesions. NECK: Supple, nontender with full range of motion. No jugular venous distention noted. RESPIRATORY: Lungs clear to auscultation bilaterally without any rhonchi, wheezes or rales. CARDIOVASCULAR: Regular rate and rhythm without any appreciable murmurs, gallops, or rubs. ABDOMEN: Soft, nontender. Positive bowel sounds. EXTREMITIES: There is no cyanosis, clubbing or edema. NEUROLOGIC: The patient is alert and oriented times three. LABORATORY: CBC was within normal limits with white count 8,400. Chemistries showed just a mildly low potassium of 3.4, magnesium normal at 1.9, creatinine 0.72, BUN 8, calcium 9.1. Liver functions all within normal limits. She had a total of four sets of troponin with all being less than 0.02 and CPK within normal limits. Coagulation studies showed normal PT, PTT. D-dimer was within normal limits at 0.23. RADIOLOGY: Chest x-ray was without any acute findings per radiologic interpretation. EKG initially in the Emergency Room showed sinus tachycardia with rare premature ventricular contractions, no ST wave changes, T-wave inversions indicating ischemia or possible acute coronary syndrome. Monitor EKG showed normal sinus rhythm prior to discharge. HOSPITAL COURSE: Ms. Watts was admitted last night. On admission, she was having chest discomfort which she noted she could not put a number to. She was given a GI cocktail on admission to the Emergency Room which did not result in any significant change in her pain. She was given 60 mg of Toradol IV which did result in resolution of her pain completely. It was reported she was having paroxysmal supraventricular tachycardia prior to admission to the Emergency Room, but through the Emergency Room visit and through hospitalization, she had no evidence of paroxysmal supraventricular tachycardia or any runs of premature ventricular contractions or paroxysmal supraventricular tachycardia episodes. Prior to discharge, she was ambulating without any complications. She had no chest pains, no recurrence of the paroxysmal supraventricular tachycardia. She was started on a beta sena with Bystolic. She was given initially 1 mg/kg Lovenox. She was also given aspirin on admission to the Medical/Surgical Floor and continued on aspirin at discharge. After review of the patient's chart and records and clinical evaluation, the patient was found to be stable and after discussion with Dr. Oliver, the patient was to be discharged. The plan was to utilize a Holter monitor and have her followup with Dr. Oliver in a week. PLAN: Ms. Watts was discharged on 04/21/19 with no evidence of acute coronary syndrome or cardiac event with all workup being negative. She was instructed she needed to followup with Dr. Oliver in 7 days. She could return to work immediately. She was encouraged to try to limit her stress. She was instructed she could use Motrin for pain related to the chest wall discomfort with concern for costochondritis. She was to resume her home medications as instructed and take new medications as directed. Diet was diabetic diet as tolerated. Activity to increase as tolerated. MEDICATIONS PRESCRIBED AT DISCHARGE: 1. Bystolic 2.5 mg daily. She was to continue with all other medications including aspirin and losartan. She was cautioned to watch her blood pressure once she started Bystolic and if her blood pressure stayed at low levels, she was instructed she could change her losartan to 50 mg daily, which will be followed by Dr. Oliver in the clinic. She is to see Dr. Oliver in a week. DISPOSITION: The patient was discharged home to care of family. CONDITION AT DISCHARGE: Stable and improved. [id number]
[2019-04-22] MEDS ORDERED: ASPIRIN TABLET 325 MG TAB PO SCH (09:00)
== END 2019-04-21 11:20 | disposition home or self-care (01) ==
LOC: ER 19:56 → OBSVTOIN 23:19 → MS 23:19 → INTOOBSV 23:19
PROVIDERS: ADMIT Nurse Practitioner Family; ATTEND Nurse Practitioner Family
DX: I47.1 Supraventricular tachycardia (principal); R07.89 Other chest pain; R06.01 Orthopnea; I10 Essential (primary) hypertension; E11.9 Type 2 diabetes mellitus without complications; K59.09 Other constipation; K21.9 Gastro-esophageal reflux disease without esophagitis; Z79.1 Long term (current) use of non-steroidal anti-inflammatories (NSAID); Z79.51 Long term (current) use of inhaled steroids; Z79.82 Long term (current) use of aspirin; Z79.899 Other long term (current) drug therapy; Z88.8 Allergy status to other drugs, medicaments and biological substances; Z87.891 Personal history of nicotine dependence; Z90.49 Acquired absence of other specified parts of digestive tract; Z90.710 Acquired absence of both cervix and uterus; Z98.84 Bariatric surgery status; Z82.49 Family history of ischemic heart disease and other diseases of the circulatory system; Z80.9 Family history of malignant neoplasm, unspecified; Z82.3 Family history of stroke; Z83.3 Family history of diabetes mellitus
CPT/HCPCS: 96374; 96372; J1885; J1650 ×2; 85379; 82553 ×4; 80053; 82948; 36415 ×6; 85025; 82550 ×4; 83735; 85730; 85610; 84484 ×4; 36416; 71045; 94760 ×2; 93225; 99285; 93005; G0378

== ENCOUNTER → 2019-06-21 | Outpatient (CLI) | payer BC | LOC: GMATM 19:56 | PROVIDERS: ATTEND Nurse Practitioner Family | DX: D23.9 Other benign neoplasm of skin, unspecified (principal) ==